=== PATIENT | male | born 1955 ===

== ENCOUNTER 2017-06-19 09:25 | Day surgery (SDC) | payer OTHER ==
[~2017-06-19] VITALS: Ht 162.6 cm; Wt 73.0 kg
[2017-06-19] MEDS ORDERED: LIDOCAINE 2% 100 MG/5 ML UJET TP ONE ×2 (12:50→13:03)
== END 2017-06-19 14:00 | disposition home or self-care (01) ==
LOC: MDS 09:25 → MMU 09:36 → MDS 14:00
PROVIDERS: ATTEND Internal Medicine Gastroenterology
DX: Z12.11 Encounter for screening for malignant neoplasm of colon (principal); K64.4 Residual hemorrhoidal skin tags; E11.9 Type 2 diabetes mellitus without complications; Z79.84 Long term (current) use of oral hypoglycemic drugs; Z68.28 Body mass index [BMI] 28.0-28.9, adult; E66.3 Overweight; Z87.891 Personal history of nicotine dependence; Z98.890 Other specified postprocedural states
CPT/HCPCS: 82948